=== PATIENT | female | born 1965 | race Caucasian/White ===

== ENCOUNTER 2024-09-17 14:38 | Emergency (ER) | payer BC ==
[2024-09-17 14:50] VITALS: BMI 41.7
[2024-09-17] MEDS ORDERED: ACETAMINOPHEN 500 MG TABLET (FP) ONE (15:42)
[2024-09-17] MEDS: ACETAMINOPHEN 500 MG TABLET (FP) PO ONE (15:50)
[2024-09-17 16:24] LABS: EPI CELLS 14 /uL (0-25.1); HYALINE CASTS 0 /uL (0-3.1); PH,URINE 5.5 (5.0-8.0); URINE APPEARANCE CLEAR; URINE BACTERIA 146 /uL (0-1359); URINE BILIRUBIN NEGATIVE (NEGATIVE); URINE COLOR YELLOW; URINE GLUCOSE (UA) NEGATIVE (NEGATIVE); URINE KETONE NEGATIVE (NEGATIVE); URINE LEUK ESTERASE 1+ (NEGATIVE); URINE NITRITE NEGATIVE (NEGATIVE); URINE PROTEIN NEGATIVE (NEGATIVE); URINE RBC 10 /uL (0-23.9); URINE UROBILINOGEN 0.2 mg/dL (0.2-1.0); URINE WBC 94 /uL (0-25.8)
[2024-09-17 16:41] VITALS: BP 126/80; PULSE 107; RESP 22; TEMP 98.5
== END 2024-09-17 17:46 | disposition home or self-care (01) ==
LOC: JER 14:38
DX: U07.1 COVID-19 (principal); J02.9 Acute pharyngitis, unspecified; R50.9 Fever, unspecified; R00.0 Tachycardia, unspecified
CPT/HCPCS: 0241U-QW; 81003; 87086; 93005; 93010; 99284-25